=== PATIENT | male | born 1980 | race Caucasian/White ===

== ENCOUNTER 2018-04-19 15:01 | Emergency (ER) | payer SELFPAY ==
[~2018-04-19] VITALS: Ht 170.2 cm; Wt 114.3 kg
[2018-04-19 15:32] VITALS: BP 144/86
== END 2018-04-19 16:50 | disposition home or self-care (01) ==
LOC: ER 15:02
DX: F10.10 Alcohol abuse, uncomplicated (principal); Y90.9 Presence of alcohol in blood, level not specified
CPT/HCPCS: 80305; 99283; A4606; Z7610